=== PATIENT | male | born 1965 | race Caucasian/White ===

== ENCOUNTER 2017-06-07 08:37 | Inpatient (IN) | payer OTHER, BC ==
[~2017-06-07] VITALS: Ht 172.7 cm; Wt 85.4 kg
[~2017-06-07 08:37] MED LIST: BLOOD PRESSURE; CHOLESTEROL; UNABLE
[2017-06-07 09:30] LABS: BASO % 0.2 %; BASO ABS # 0.02 K/uL (0-0.2); COMPLETE YES; EOS % 1.5 %; HEMATOCRIT 42.6 % (42-52); IG% 0.3 %; LYMPH % 24.4 %; LYMPH ABS # 2.31 K/uL (1.2-3.4); MEAN CELL VOLUME 89.1 fL (80-100); MEAN CORPUSCULAR HEMOGLOBIN 30.5 pg (25-34); MEAN CORPUSCULAR HGB CONC 34.3 g/dl (32-36); MEAN PLATELET VOLUME 9.5 fL (7.4-10.4); MONO % 4.4 %; NEUT % 69.2 %; PLATELET COUNT 184 K/uL (130-400); RED BLOOD COUNT 4.78 M/uL (4.7-6.1); VEN BLD GAS O2 SATURATION 67.5 %; VEN BLOOD GAS BASE EXCESS -0.7 mEq/L; WHITE BLOOD COUNT 9.47 K/uL (4.8-10.8)
--- NOTE | 2017-06-07 09:34 | EMERGENCY ROOM VISIT NOTE ---
History First contact with patient: 09:11 Chief Complaint: SEIZURE Stated Complaint: SEIZURE Nursing Triage Summary: Patient arrived via ems from his work site. 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 EMS checked carbon monoxide level which resulted at 3%. Patient was found seizing by his coworkers, unsure how long he was seizing. Denies history of seziures. PT reports taking medication for BP and cholesterol. Patient post-ictal, lethargic, A&O to person and place only. Speech is clear. PT bit his tongue and incontinent of urine. History of Present Illness The patient is a 52 year old male who presents to the Emergency Room with complaints of seizure, unwitnessed, while at work. 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 He does not know why he is here in hospital, just that he "must've passed out or something." He is oriented to person and place but disoriented to time. He recalls going to work and getting into truck at work, but does not remember being in the mine. He remembers the time being 0730. Does not recall any dizziness or lightheadedness. He reports his tongue hurts and his right calf hurts but otherwise no complaints. No personal or family history of seizures or chronic medical conditions. He denies recent illness, denies changes in vision. He takes medications for hypertension and cholesterol and reports he did take them this morning. Review of Systems see below Constitutional: No fever, No chills, No sweats, No weight loss, No weakness , No fatigue, No problem reported Eyes: No worsening of vision, No eye pain, No redness, No discharge, No diplopia, No problem reported ENT: + problem reported (tongue hurts), No hearing loss, No unusual epistaxis, No nasal symptoms, No sore throat, No tinnitus, No dental problems, No trouble swallowing Respiratory: No cough, No sputum, No wheezing, No shortness of breath, No dyspnea on exertion, No dyspnea at rest, No hemoptysis, No problem reported Cardiovascular: No chest pain, No orthopnea, No PND, No edema, No claudication, No palpitations, No problem reported Abdomen: No pain, No nausea, No vomiting, No diarrhea, No constipation, No GI bleeding, No problem reported Musculoskeletal: + muscle pain (right calf ) Genitourinary - Male: + urinary incontinence Neurologic: + memory loss Past Medical/Surgical History Medical Problems: (1) Hyperlipidemia (2) Hypertension Social History Smoking Status: Never Smoker Smokeless Tobacco Use: Yes (previously used chewing tobacco 25 years ago) Drug Use: none Marital Status: Housing Status: lives with significant other Occupation Status: employed Current/Historical Medications Scheduled Lisinopril (Zestril), 20 MG PO DAILY Simvastatin (Zocor), 20 MG PO QAM Scheduled PRN [place]-3 Fatty Acids (Fish Oil), 1 CAP PO DAILY PRN for PRN Resident Involvement: Resident Care Provided Care Provided: Adult ED Physical Exam Vital Signs Date Time Temp Pulse Resp B/P (MAP) Pulse Ox O2 Delivery O2 Flow Rate FiO2 06/07/17 12:30 116 20 121/81 93 Nasal Cannula 4.0 06/07/17 12:19 114 06/07/17 12:10 117 22 115/68 93 Nasal Cannula 4.0 06/07/17 12:00 120 22 136/83 93 Nasal Cannula 4.0 06/07/17 11:57 117 20 142/85 94 Nasal Cannula 2.0 06/07/17 11:00 85 20 170/95 95 06/07/17 09:06 85 18 149/103 92 Room Air 06/07/17 08:52 97 06/07/17 08:48 94 Room Air 06/07/17 08:48 36.6 89 22 166/97 94 Room Air Physical Exam See below General Appearance: WD/WN, no apparent distress Head: normocephalic, atraumatic Eyes: normal inspection, PERRL, EOMI ENT: hearing grossly normal, + pertinent finding (bleeding from right side of tongue; scraped lesion on right lateral tongue) Neck: supple, no adenopathy Respiratory/Chest: chest non-tender, lungs clear, normal breath sounds, no respiratory distress, no accessory muscle use Cardiovascular: regular rate, rhythm, no edema, no JVD, no murmur Medical Decision & Procedures Laboratory Results 06/07/17 09:17 Red Blood Count 4.78, Mean Corpuscular Volume 89.1, Mean Corpuscular Hemoglobin 30.5, Mean Corpuscular Hemoglobin Concent 34.3, Mean Platelet Volume 9.5, Neutrophils (%) (Auto) 69.2, Lymphocytes (%) (Auto) 24.4, Monocytes (%) (Auto) 4.4, Eosinophils (%) (Auto) 1.5, Basophils (%) (Auto) 0.2, Neutrophils # (Auto) 6.55, Lymphocytes # (Auto) 2.31, Monocytes # (Auto) 0.42, Eosinophils # (Auto) 0.14, Basophils # (Auto) 0.02 06/07/17 09:17 Test 06/07/17 09:17 06/07/17 12:01 White Blood Count 9.47 K/uL (4.8-10.8) Red Blood Count 4.78 M/uL (4.7-6.1) Hemoglobin 14.6 g/dL (14.0-18.0) Hematocrit 42.6 % (42-52) Mean Corpuscular Volume 89.1 fL (80-100) Mean Corpuscular Hemoglobin 30.5 pg (25-34) Mean Corpuscular Hemoglobin Concent 34.3 g/dl (32-36) Platelet Count 184 K/uL (130-400) Mean Platelet Volume 9.5 fL (7.4-10.4) Neutrophils (%) (Auto) 69.2 % Lymphocytes (%) (Auto) 24.4 % Monocytes (%) (Auto) 4.4 % Eosinophils (%) (Auto) 1.5 % Basophils (%) (Auto) 0.2 % Neutrophils # (Auto) 6.55 K/uL (1.4-6.5) Lymphocytes # (Auto) 2.31 K/uL (1.2-3.4) Monocytes # (Auto) 0.42 K/uL (0.11-0.59) Eosinophils # (Auto) 0.14 K/uL (0-0.5) Basophils # (Auto) 0.02 K/uL (0-0.2) RDW Standard Deviation 45.0 fL (36.4-46.3) RDW Coefficient of Variation 13.7 % (11.5-14.5) Immature Granulocyte % (Auto) 0.3 % Immature Granulocyte # (Auto) 0.03 K/uL (0.00-0.02) D-Dimer 490 ug/L FEU (0-500) Venous Blood pH 7.38 (7.36-7.41) Venous Blood Partial Pressure CO2 42 mmHg (38.0-50.0) Venous Blood Partial Pressure O2 37 mmHg Venous Blood HCO3 25 mmol/L Venous Blood Oxygen Saturation 67.5 % Venous Blood Base Excess -0.7 mEq/L Carboxyhemoglobin 0.0 % THgb Anion Gap 12.0 mmol/L (3-11) Est Creatinine Clear Calc Drug Dose 81.4 ml/min Estimated GFR () 83.2 Estimated GFR (Non- 71.8 BUN/Creatinine Ratio 17.7 (10-20) Calcium Level 9.2 mg/dl (8.5-10.1) Total Bilirubin 0.4 mg/dl (0.2-1) Aspartate Amino Transf (AST/SGOT) 21 U/L (15-37) Alanine Aminotransferase (ALT/SGPT) 39 U/L (12-78) Alkaline Phosphatase 71 U/L (45-117) Troponin I < 0.015 ng/ml (0-0.045) Total Protein 7.4 gm/dl (6.4-8.2) Albumin 4.0 gm/dl (3.4-5.0) Globulin 3.4 gm/dl (2.5-4.0) Albumin/Globulin Ratio 1.2 (0.9-2) Medications Administered Medications (Trade) Dose Ordered Sig/Bryce Route Start Time Stop Time Status Last Admin Dose Admin Sodium Chloride 1,000 ml @ 999 mls/hr Q1H1M ONCE IV 06/07/17 09:45 06/07/17 10:45 DC 06/07/17 10:09 999 MLS/HR Lorazepam (Ativan Inj) 2 mg STK-MED ONCE .ROUTE 06/07/17 11:45 06/07/17 11:46 DC 06/07/17 11:45 2 MG Levetiracetam 1000 mg/Dextrose 110 ml @ 440 mls/hr ONE ONCE IV 06/07/17 12:00 06/07/17 12:14 DC 06/07/17 12:09 440 MLS/HR ECG Indication: altered mental status Rate (beats per minute): 88 Rhythm: normal sinus Findings: no acute ischemic change Comparison ECG Date: no prior available ED Course 0915: full h&p obtained from patient. 1000: patient sent for Head CT and CXR 1100: patient updated on results from scans; awaiting to hear from mine coworkers 1115: discussed case with poison control, they did not believe it would be related to [place] mine and recommended medical workup. 1200: patient to be evaluated by hospitalists for admission Medical Decision Prior records/ancillary studies reviewed. Patient placed in seizure precautions immediately upon arrival. Nursing notes reviewed. Additional history obtained from his The patient's history was concerning for a possible seizure. Differential diagnosis: Etiologies such as infection, hypoglycemia, electrolyte abnormalities, cardiac sources, intracerebral event, trauma, toxicologic, neurologic, as well as others were entertained. Physical examination: As above. No signs of trauma. Diagnostics interpretation by me: ECG: NSR, Regular rate, normal EKG The labs revealed nothing abnormal: anion gap of 12, negative carboxylase, normal VBG, negative troponin Imaging studies: CHEST ONE VIEW PORTABLE CLINICAL HISTORY: Shortness of breath. Seizure. COMPARISON STUDY: No previous studies for comparison. FINDINGS: Lung volumes are mildly diminished. Lungs are clear. Pulmonary vascularity is normal. Cardiomediastinal silhouette is normal. There is no pneumothorax or pleural effusion. IMPRESSION: No acute cardiopulmonary findings. CT SCAN OF THE BRAIN WITHOUT IV CONTRAST CLINICAL HISTORY: Seizure. COMPARISON STUDY: CT of the brain dated 05/26/2011. TECHNIQUE: Unenhanced axial CT scan of the brain is performed from the vertex to the skull base. A dose lowering technique was utilized adhering to the principles of ALARA. FINDINGS: Brain parenchyma: Left frontal encephalomalacia is unchanged from 05/26/2011 and consistent with a remote insult. There is minimal periventricular microangiopathic disease. There is no hemorrhage, mass effect, or evidence of acute territorial ischemia by CT criteria. Harp-white matter is preserved. No extra-axial fluid collection is seen. Ventricles, sulci, cisterns: Normal in configuration. Intracranial vasculature: There is atherosclerotic calcification of the cavernous carotid arteries. Calvarium: There is no depressed calvarial fracture. Sinuses and mastoids: Trace mucosal thickening is seen in the left frontal, the ethmoid, the sphenoid, and the left maxillary sinuses. The mastoid air cells are well pneumatized. Orbits: The bony orbits are grossly intact. IMPRESSION: 1. There is no hemorrhage, mass effect, or evidence of acute territorial ischemia by CT criteria. 2. Left frontal encephalomalacia is unchanged from 2010 and consistent with a remote insult. Consultation: Case discussed with latex foam worker who will evaluate for admission. The patient was counseled not to drive until cleared in follow-up and seizure precautions given. I gave my usual and customary discussion regarding these issues. The patient was informed about the findings as listed above. All questions were answered and he was pleased with the treatment. Blood Pressure Screening Patient's blood pressure: Elevated blood pressure Blood pressure disposition: Elevated BP felt to be situational Impression Primary Impression: Seizure Departure Information Dispostion Admitted as an inpatient Condition GOOD Referrals No Doctor, Assigned (PCP) Patient Instructions [facility]
[2017-06-07] MEDS ORDERED: SODIUM CHLORIDE 0.9% 1000ML 1,000 ML IV ONE (09:45)
[2017-06-07 09:52] LABS: BUN/CREATININE RATIO 17.7 (10-20); CALCIUM 9.2 mg/dl (8.5-10.1); CREATININE 1.17 mg/dl (0.60-1.40); POTASSIUM 3.7 mmol/L (3.5-5.1)
[2017-06-07 09:56] LABS: ALB/GLOB RATIO 1.2 (0.9-2)
--- NOTE | 2017-06-07 10:19 | DIAGNOSTIC IMAGING REPORT ---
CHEST ONE VIEW PORTABLE CLINICAL HISTORY: Shortness of breath. Seizure. COMPARISON STUDY: No previous studies for comparison. FINDINGS: Lung volumes are mildly diminished. Lungs are clear. Pulmonary vascularity is normal. Cardiomediastinal silhouette is normal. There is no pneumothorax or pleural effusion. IMPRESSION: No acute cardiopulmonary findings. Electronically signed by: Benji Ken M.D. 06/07/2017 10:18 AM Dictated Date/Time: 06/07/2017 10:17 AM
[2017-06-07] MEDS ORDERED: SIMV20TA2 PO (10:23)
[2017-06-07] MEDS ORDERED: LISI-725 PO (10:23)
[2017-06-07] MEDS ORDERED: OMEGCAP2 PO (10:23)
--- NOTE | 2017-06-07 10:45 | DIAGNOSTIC IMAGING REPORT ---
CT SCAN OF THE BRAIN WITHOUT IV CONTRAST CLINICAL HISTORY: Seizure. COMPARISON STUDY: CT of the brain dated 05/26/2011. TECHNIQUE: Unenhanced axial CT scan of the brain is performed from the vertex to the skull base. A dose lowering technique was utilized adhering to the principles of ALARA. CT DOSE: 690.05 mGycm FINDINGS: Brain parenchyma: Left frontal encephalomalacia is unchanged from 05/26/2011 and consistent with a remote insult. There is minimal periventricular microangiopathic disease. There is no hemorrhage, mass effect, or evidence of acute territorial ischemia by CT criteria. Harp-white matter is preserved. No extra-axial fluid collection is seen. Ventricles, sulci, cisterns: Normal in configuration. Intracranial vasculature: There is atherosclerotic calcification of the cavernous carotid arteries. Calvarium: There is no depressed calvarial fracture. Sinuses and mastoids: Trace mucosal thickening is seen in the left frontal, the ethmoid, the sphenoid, and the left maxillary sinuses. The mastoid air cells are well pneumatized. Orbits: The bony orbits are grossly intact. IMPRESSION: 1. There is no hemorrhage, mass effect, or evidence of acute territorial ischemia by CT criteria. 2. Left frontal encephalomalacia is unchanged from 2010 and consistent with a remote insult. Electronically signed by: Zaheer Joyce M.D. 06/07/2017 10:44 AM Dictated Date/Time: 06/07/2017 10:41 AM
[2017-06-07] MEDS ORDERED: LORAZEPAM 2 MG/ML 1 ML VIAL ONE (11:45)
[2017-06-07] MEDS ORDERED: LEVETIRACETAM IV 1,000 MG in DEXTROSE 5% 100ML 100 ML IV ONE (12:00)
[2017-06-07] MEDS ORDERED: ACETAMINOPHEN 325 MG TAB PO PRN (13:15)
[2017-06-07] MEDS ORDERED: LORAZEPAM 0.5 MG TAB PO PRN (13:15)
[2017-06-07] MEDS ORDERED: LORAZEPAM 2 MG/ML 1 ML VIAL IV PRN ×2 (13:15)
[2017-06-07] MEDS ORDERED: HydrALAZINE HCL 20 MG/ML VIAL IV PRN (13:15)
[2017-06-07] MEDS ORDERED: ONDANSETRON INJ 2 MG/ML 2 ML VIAL IV PRN (13:15)
[2017-06-07] MEDS ORDERED: ALUMINUM/MAGNESIUM/SIMETH (MAALOX MAX) 30 ML UDC PO PRN (13:15)
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
[2017-06-07 14:09] LABS: INR 1.1 (0.9-1.1); PROTHROMBIN TIME (PATIENT) 11.4 SECONDS (9.0-12.0)
[2017-06-07 14:20] LABS: BENZODIAZEPINE, URINE NEG (NEG); COCAINE,URINE NEG (NEG); PHENCYCLIDINE, URINE NEG (NEG)
--- NOTE | 2017-06-07 14:52 | EMERGENCY ROOM VISIT NOTE ---
History Report prepared by Magnus: Amie Bowling Under the Supervision of: Dr. Apollo Del Cid D.O. First contact with patient: 09:10 Chief Complaint: SEIZURE Stated Complaint: SEIZURE Nursing Triage Summary: Patient arrived via ems from his work site. 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 EMS checked carbon monoxide level which resulted at 3%. Patient was found seizing by his coworkers, unsure how long he was seizing. Denies history of seziures. PT reports taking medication for BP and cholesterol. Patient post-ictal, lethargic, A&O to person and place only. Speech is clear. PT bit his tongue and incontinent of urine. History of Present Illness The patient is a 52 year old male who presents to the Emergency Room with complaints of a sudden seizure that occurred just prior to arrival. He currently rates his discomfort as a 3/10 in severity. 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 He states that today he remembers going into the mine initially and states that he then came back out after a call outside. The patient states that he then remembers going back into the mine but does not remember anything after that. Per EMS the patient was found having a seizure by a coworker. EMS reports that the patient was incontinent of urine and had bit his tongue. The patient denies any personal or family history of seizures. He states that the first thing after the incident he remembers is being in the ambulance. The patient states that he is feeling fidgety today. He reports right calf pain. The patient reports a history of hypertension and hyperlipidemia. Patient denies swelling of calves, recent trips, history of immobilization or recent surgery, prior history of DVT, hemoptysis, history of malignancy, history of smoking, or control/estrogen use. Patient denies diabetes, CAD, history of sudden at a young age, and smoking. The patient denies headache, change in vision, fevers, chest pain, shortness of breath, nausea, vomiting, diarrhea, pain with urination, and melena. Source of History: patient Onset: prior to arrival Position: other (global) Symptom Intensity: 3/10 Quality: other (seizure) Timing: other (sudden) Note: Associated Symptoms: tongue bite, incontinent of urine, right calf pain, feeling fidgety Review of Systems See HPI for pertinent positives & negatives. A total of 10 systems reviewed and were otherwise negative. Past Medical & Surgical Medical Problems: (1) Hyperlipidemia (2) Hypertension (3) Seizure Family History No pertinent family history stated Social History Smoking Status: Never Smoker Alcohol Use: heavy Marital Status: Housing Status: lives with significant other Occupation Status: employed Current/Historical Medications Scheduled Lisinopril (Zestril), 20 MG PO DAILY Simvastatin (Zocor), 20 MG PO QAM Scheduled PRN Spurger-3 Fatty Acids (Fish Oil), 1 CAP PO DAILY PRN for PRN Allergies Coded Allergies: BEE STING (Verified Allergy, Unknown, ., 06/07/17) Physical Exam Vital Signs Date Time Temp Pulse Resp B/P (MAP) Pulse Ox O2 Delivery O2 Flow Rate FiO2 06/07/17 14:25 86 20 130/77 97 06/07/17 13:30 93 20 135/82 95 Room Air 06/07/17 13:10 97 20 153/99 93 Nasal Cannula 06/07/17 12:30 116 20 121/81 93 Nasal Cannula 4.0 06/07/17 12:19 114 06/07/17 12:10 117 22 115/68 93 Nasal Cannula 4.0 06/07/17 12:00 120 22 136/83 93 Nasal Cannula 4.0 06/07/17 11:57 117 20 142/85 94 Nasal Cannula 2.0 06/07/17 11:00 85 20 170/95 95 06/07/17 09:06 85 18 149/103 92 Room Air 06/07/17 08:52 97 06/07/17 08:48 94 Room Air 06/07/17 08:48 36.6 89 22 166/97 94 Room Air Physical Exam GENERAL: Sitting up in bed, alert, well appearing, well nourished, no distress, non-toxic HEAD: Normocephalic, atraumatic EYE EXAM: normal conjunctiva. PERRL and EOM's intact. OROPHARYNX: no exudate, no erythema, lips, buccal mucosa, and tongue normal and mucous membranes are moist NECK: supple, no nuchal rigidity, no adenopathy, non-tender LUNGS: Clear to auscultation. Normal chest wall mechanics HEART: no murmurs, S1 normal and S2 normal ABDOMEN: abdomen soft, non-tender, normo-active bowel sounds, no masses, no rebound or guarding. BACK: Back is symmetrical on inspection and there is no deformity, no midline tenderness, no CVA tenderness. SKIN: no rashes and no bruising UPPER EXTREMITIES: upper extremities are grossly normal. LOWER EXTREMITIES: No pitting edema. NEURO EXAM: Normal sensorium, cranial nerves II-XII intact, normal speech, no weakness of arms, no weakness of legs. No drift. Finger to nose intact. Gross sensation intact. Medical Decision & Procedures ER Provider Diagnostic Interpretation: Radiology results as stated below per my review and the radiologist's interpretation: CHEST ONE VIEW PORTABLE CLINICAL HISTORY: Shortness of breath. Seizure. COMPARISON STUDY: No previous studies for comparison. FINDINGS: Lung volumes are mildly diminished. Lungs are clear. Pulmonary vascularity is normal. Cardiomediastinal silhouette is normal. There is no pneumothorax or pleural effusion. IMPRESSION: No acute cardiopulmonary findings. Electronically signed by: Benji Ken M.D. 06/07/2017 10:18 AM Dictated Date/Time: 06/07/2017 10:[address] SCAN OF THE BRAIN WITHOUT IV CONTRAST CLINICAL HISTORY: Seizure. COMPARISON STUDY: CT of the brain dated 05/26/2011. TECHNIQUE: Unenhanced axial CT scan of the brain is performed from the vertex to the skull base. A dose lowering technique was utilized adhering to the principles of ALARA. CT DOSE: 690.05 mGycm FINDINGS: Brain parenchyma: Left frontal encephalomalacia is unchanged from 05/26/2011 and consistent with a remote insult. There is minimal periventricular microangiopathic disease. There is no hemorrhage, mass effect, or evidence of acute territorial ischemia by CT criteria. Harp-white matter is preserved. No extra-axial fluid collection is seen. Ventricles, sulci, cisterns: Normal in configuration. Intracranial vasculature: There is atherosclerotic calcification of the cavernous carotid arteries. Calvarium: There is no depressed calvarial fracture. Sinuses and mastoids: Trace mucosal thickening is seen in the left frontal, the ethmoid, the sphenoid, and the left maxillary sinuses. The mastoid air cells are well pneumatized. Orbits: The bony orbits are grossly intact. IMPRESSION: 1. There is no hemorrhage, mass effect, or evidence of acute territorial ischemia by CT criteria. 2. Left frontal encephalomalacia is unchanged from 2010 and consistent with a remote insult. Electronically signed by: Zaheer Joyce M.D. 06/07/2017 10:44 AM Dictated Date/Time: 06/07/2017 10:41 AM Laboratory Results 06/07/17 09:17 Red Blood Count 4.78, Mean Corpuscular Volume 89.1, Mean Corpuscular Hemoglobin 30.5, Mean Corpuscular Hemoglobin Concent 34.3, Mean Platelet Volume 9.5, Neutrophils (%) (Auto) 69.2, Lymphocytes (%) (Auto) 24.4, Monocytes (%) (Auto) 4.4, Eosinophils (%) (Auto) 1.5, Basophils (%) (Auto) 0.2, Neutrophils # (Auto) 6.55, Lymphocytes # (Auto) 2.31, Monocytes # (Auto) 0.42, Eosinophils # (Auto) 0.14, Basophils # (Auto) 0.02 06/07/17 09:17 Test 06/07/17 09:17 06/07/17 09:50 06/07/17 12:01 White Blood Count 9.47 K/uL (4.8-10.8) Red Blood Count 4.78 M/uL (4.7-6.1) Hemoglobin 14.6 g/dL (14.0-18.0) Hematocrit 42.6 % (42-52) Mean Corpuscular Volume 89.1 fL (80-100) Mean Corpuscular Hemoglobin 30.5 pg (25-34) Mean Corpuscular Hemoglobin Concent 34.3 g/dl (32-36) Platelet Count 184 K/uL (130-400) Mean Platelet Volume 9.5 fL (7.4-10.4) Neutrophils (%) (Auto) 69.2 % Lymphocytes (%) (Auto) 24.4 % Monocytes (%) (Auto) 4.4 % Eosinophils (%) (Auto) 1.5 % Basophils (%) (Auto) 0.2 % Neutrophils # (Auto) 6.55 K/uL (1.4-6.5) Lymphocytes # (Auto) 2.31 K/uL (1.2-3.4) Monocytes # (Auto) 0.42 K/uL (0.11-0.59) Eosinophils # (Auto) 0.14 K/uL (0-0.5) Basophils # (Auto) 0.02 K/uL (0-0.2) RDW Standard Deviation 45.0 fL (36.4-46.3) RDW Coefficient of Variation 13.7 % (11.5-14.5) Immature Granulocyte % (Auto) 0.3 % Immature Granulocyte # (Auto) 0.03 K/uL (0.00-0.02) D-Dimer 490 ug/L FEU (0-500) Venous Blood pH 7.38 (7.36-7.41) Venous Blood Partial Pressure CO2 42 mmHg (38.0-50.0) Venous Blood Partial Pressure O2 37 mmHg Venous Blood HCO3 25 mmol/L Venous Blood Oxygen Saturation 67.5 % Venous Blood Base Excess -0.7 mEq/L Carboxyhemoglobin 0.0 % THgb Anion Gap 12.0 mmol/L (3-11) Est Creatinine Clear Calc Drug Dose 81.4 ml/min Estimated GFR () 83.2 Estimated GFR (Non- 71.8 BUN/Creatinine Ratio 17.7 (10-20) Calcium Level 9.2 mg/dl (8.5-10.1) Total Bilirubin 0.4 mg/dl (0.2-1) Aspartate Amino Transf (AST/SGOT) 21 U/L (15-37) Alanine Aminotransferase (ALT/SGPT) 39 U/L (12-78) Alkaline Phosphatase 71 U/L (45-117) Troponin I < 0.015 ng/ml (0-0.045) Total Protein 7.4 gm/dl (6.4-8.2) Albumin 4.0 gm/dl (3.4-5.0) Globulin 3.4 gm/dl (2.5-4.0) Albumin/Globulin Ratio 1.2 (0.9-2) Prothrombin Time 11.4 SECONDS (9.0-12.0) Prothromb Time International Ratio 1.1 (0.9-1.1) Urine Opiates Screen NEG (NEG) Urine Methadone, Qualitative NEG (NEG) Urine Barbiturates NEG (NEG) Urine Phencyclidine (PCP) Level NEG (NEG) Ur Amphetamine/Methamphetamine NEG (NEG) MDMA (Ecstasy) Screen NEG (NEG) Urine Benzodiazepines Screen NEG (NEG) Urine Cocaine Metabolite NEG (NEG) Urine Marijuana (THC) NEG (NEG) Ethyl Alcohol mg/dL < 3.0 mg/dl (0-3) Laboratory results per my review. Medications Administered Medications (Trade) Dose Ordered Sig/Bryce Route Start Time Stop Time Status Last Admin Dose Admin Sodium Chloride 1,000 ml @ 999 mls/hr Q1H1M ONCE IV 06/07/17 09:45 06/07/17 10:45 DC 06/07/17 10:09 999 MLS/HR Lorazepam (Ativan Inj) 2 mg STK-MED ONCE .ROUTE 06/07/17 11:45 06/07/17 11:46 DC 06/07/17 11:45 2 MG Levetiracetam 1000 mg/Dextrose 110 ml @ 440 mls/hr ONE ONCE IV 06/07/17 12:00 06/07/17 12:14 DC 06/07/17 12:09 440 MLS/HR ECG Indication: other (seizure) Rate (beats per minute): 88 Rhythm: sinus rhythm Findings: no ectopy, other (normal axis) ED Course ED COURSE: Vital signs were reviewed and showed hypertensive The patients medical record was reviewed The above diagnostic studies were performed and reviewed. ED treatments and interventions as stated above. 0915: The patient was evaluated in room A2 by Dr. Hou, Maternal Child Nurse. A complete history and physical examination was performed. 0943: The patient was evaluated in room A2. A complete history and physical examination was performed. 0945: Ordered Sodium Chloride 1000 ml @ 999 mls/hr IV. 1141: Per nursing staff, the patient began seizing again. 1144: I spoke to the patients at this time, the patient was going underground when the seizure began. She additionally reports that the patient is an alcoholic and drinks daily. She notes that the patient last drank yesterday at 1100. 1145: Ordered Ativan Inj 2 mg .route. 1200: Ordered Levetiracetam 1000 mg/Dextrose 110 ml @ 440 mls/hr IV. 1201: I discussed the patients case with Dr. Rutherford [facility] [place]. He is going to evaluate the patient for further treatment. 1204: Upon reevaluation, the patient is resting.I discussed my findings with the patient's and she understands and agrees with the treatment plan. Based on the patients age, coexisting illnesses, exam and lab findings the decision to treat as an inpatient was made. The patient remained stable while under my care. The patient will be evaluated for further management. Medical Decision Differential diagnosis includes etiologies such as infection, hypoglycemia, electrolyte abnormalities, cardiac sources, intracerebral event, trauma, toxicologic, neurologic, as well as others were entertained. 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 Upon presentation he has no other complaints. No headache or change in vision. Completely neurologically intact. CT head was negative. No trauma. CBC all BMP, LFTs and troponin was negative. ABG was unremarkable. Carboxyhemoglobin was negative. Alcohol was negative. D-dimer was negative. EKG nondiagnostic. Upon further discussion with she notes that he is an alcoholic. He does drink every day. He has not drank since yesterday at 11 AM. This conversation occurred shortly after the patient had a second witnessed seizure in the ER. He was given 2 of Ativan. He was given a bolus of Keppra. I discussed with internal medicine and was admitted for status epilepticus. He did return back to baseline following his second seizure. Medication Reconcilliation Current Medication List: was personally reviewed by me Blood Pressure Screening Patient's blood pressure: Elevated blood pressure Blood pressure disposition: Elevated BP felt to be situational, Did not require urgent referral Consults Time Called: 1154 Consulting Physician: ANNE Ramirez Returned Call: 1201 I discussed the patients case with ANNE Ramirez. He is going to evaluate the patient for further treatment. Impression Primary Impression: Status epilepticus Critical Care I have personally spent 35 minutes of critical care time in the direct management of this patient. This includes bedside care, interpretation of diagnostic studies, and testing, discussion with consultants, patient, and family members, and other required patient management activities. This 35 minutes is in excess of all separately billable procedures. Scribe Attestation The scribe's documentation has been prepared under my direction and personally reviewed by me in its entirety. I confirm that the note above accurately reflects all work, treatment, procedures, and medical decision making performed by me. Departure Information Dispostion Being Evaluated By Hospitalist Referrals No Doctor, Assigned (PCP)
[2017-06-07 15:15] VITALS: BP 152/92; PULSE 95; TEMP 36.9; O2SAT 98; Ht 172.7 cm; Wt 85.4 kg
[2017-06-07] MEDS: LEVETIRACETAM 500 MG TAB PO ONE ×2 (16:00→17:00)
--- NOTE | 2017-06-07 18:05 | DIAGNOSTIC IMAGING REPORT ---
MRI OF THE BRAIN WITHOUT CONTRAST CLINICAL HISTORY: seizure COMPARISON STUDY: Noncontrast head CT dated 06/07/2017 FINDINGS: Sagittal T1, axial diffusion, proton density and T2 weighted axial, coronal FLAIR, and axial T1-weighted images were acquired. No intra or extra-axial mass lesions are visualized Axial diffusion-weighted images reveal no evidence of acute or subacute infarction. There is no evidence of hydrocephalus. There is mild dilatation of the left lateral ventricle secondary to left frontal lobe encephalomalacia. Proton density T2-weighted and FLAIR images reveal scattered foci of increased T2 signal within the white matter, likely on a small vessel basis. There is white matter edema surrounding the left frontal lobe encephalomalacia. There is left frontal lobe encephalomalacia, similar to prior studies dating back to 2010. This suggests an old infarct or posttraumatic injury. There is very subtle hippocampal asymmetry with equivocal subtle right hippocampal atrophy as compared to the left There are no abnormal flow voids. IMPRESSION: 1. No acute intracranial findings 2. No evidence of acute or subacute infarction 3. Old left frontal lobe encephalomalacia 4. Very subtle hippocampal asymmetry with equivocal subtle right hippocampal atrophy is compared to the left. Electronically signed by: Edin Barrios M.D. 06/07/2017 6:03 PM Dictated Date/Time: 06/07/2017 5:58 PM
[2017-06-07] MEDS: LEVETIRACETAM 500 MG TAB PO SCH (19:46)
[2017-06-07 20:09] VITALS: BP 159/93; PULSE 93; TEMP 36.8; O2SAT 95
[2017-06-07] MEDS ORDERED: ENOXAPARIN 40 MG/0.4 ML SYR SC SCH (21:00)
[2017-06-07 23:45] VITALS: BP 151/87; PULSE 79; TEMP 36.9; O2SAT 96
[2017-06-08] MEDS ORDERED: LEVETIRACETAM 500 MG TAB PO SCH
[2017-06-08 03:59] VITALS: BP 143/89; PULSE 72; TEMP 36.6; O2SAT 95
[2017-06-08 06:03] LABS: HEMATOCRIT 39.7 % (42-52); MEAN CELL VOLUME 89.4 fL (80-100); MEAN CORPUSCULAR HEMOGLOBIN 31.1 pg (25-34); MEAN CORPUSCULAR HGB CONC 34.8 g/dl (32-36); MEAN PLATELET VOLUME 9.8 fL (7.4-10.4); PLATELET COUNT 181 K/uL (130-400); RED BLOOD COUNT 4.44 M/uL (4.7-6.1); WHITE BLOOD COUNT 7.53 K/uL (4.8-10.8)
[2017-06-08 06:38] LABS: BUN/CREATININE RATIO 12.3 (10-20); CALCIUM 8.3 mg/dl (8.5-10.1); CREATININE 1.08 mg/dl (0.60-1.40); POTASSIUM 3.6 mmol/L (3.5-5.1)
[2017-06-08] MEDS: LEVETIRACETAM 500 MG TAB PO SCH (07:40)
[2017-06-08 08:00] VITALS: BP 137/84; PULSE 78; TEMP 36.9; O2SAT 95
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
[2017-06-08] MEDS ORDERED: LISINOPRIL 20 MG TAB PO SCH (09:00)
--- NOTE | 2017-06-08 10:44 | EEG Procedure Note ---
EEG Procedure Note Date of Service Jun 08, 2017. Start / End Times Start Time: 10:49 AM End Time: 10:[address] Rutherford History This is a 52-year-old male who presents with new onset seizure. EEG for further evaluation of possible seizure etiology. Home Medication List Scheduled Lisinopril (Zestril), 20 MG PO DAILY Simvastatin (Zocor), 20 MG PO QAM Scheduled PRN [place]-3 Fatty Acids (Fish Oil), 1 CAP PO DAILY PRN for PRN Inpatient Medication List Current Inpatient Medications Medications (Trade) Dose Ordered Sig/Bryce Route Start Time Stop Time Status Last Admin Dose Admin Enoxaparin Sodium (Lovenox Inj) 40 mg Q24H SC 06/07/17 21:00 07/07/17 13:14 06/07/17 19:47 40 MG Acetaminophen (Tylenol Tab) 650 mg Q4H PRN PO 06/07/17 13:15 07/07/17 13:14 Al Hydrox/Mg Hydrox/Simethicone (Maalox Max Susp) 15 ml Q4H PRN PO 06/07/17 13:15 07/07/17 13:14 Ondansetron HCl (Zofran Inj) 4 mg Q6H PRN IV 06/07/17 13:15 07/07/17 13:14 Levetiracetam (Keppra Tab) 500 mg BID PO 06/07/17 21:00 07/07/17 20:59 06/08/17 07:40 500 MG Lorazepam (Ativan Tab) 1 mg Q6 PRN PO 06/07/17 13:15 07/07/17 13:14 06/08/17 07:40 1 MG Lorazepam (Ativan Inj) 2 mg Q4H PRN IV 06/07/17 13:15 07/07/17 13:14 Lorazepam (Ativan Inj) 1 mg Q4H PRN IV 06/07/17 13:15 07/07/17 13:14 Hydralazine HCl (HydrALAZINE INJ) 10 mg Q4H PRN IV 06/07/17 13:15 07/07/17 13:14 Lisinopril (Zestril Tab) 20 mg DAILY PO 06/08/17 09:00 07/08/17 08:59 06/08/17 07:41 20 MG Simvastatin (Zocor Tab) 20 mg HS PO 06/08/17 21:00 07/08/17 20:59 Description This is a 21 electrode EEG with a single channel dedicated to limited EKG. The electrodes were placed in accordance with the International 10-20 system. EEG was recorded on [employer] equipment. At the start of this recording the patient was in an awake state. Background was well formed with a symmetric next of moderate amplitude alpha and beta frequencies. There was a symmetric well-formed posterior dominant rhythm of 8-9 Hz that was reactive to eye opening and closure. Photic stimulation at various frequencies did not produce any abnormalities. Hyperventilation was not done. There was no state changes or sleep transients. Interpretation This is a normal awake only routine EEG There was no epileptiform discharges or electrographic seizures. Clinical Correlation A normal EEG does not rule out epilepsy if there is a strong clinical concern.
[2017-06-08 11:55] VITALS: BP 132/63; PULSE 74; TEMP 36.8; O2SAT 99
[2017-06-08 12:00] VITALS: O2SAT 95
[2017-06-08] MEDS ORDERED: LEVE500T13 PO ×2 (13:36→16:10)
--- NOTE | 2017-06-08 16:09 | Discharge Instructions ---
Discharge Instructions Date of Service Jun 08, 2017. Admission Reason for Admission: Seizure Discharge Discharge Diagnosis / Problem: Seizure Discharge Goals Goal(s): Decrease discomfort, Improve function, Increase independence Activity Recommendations Activity Limitations: as noted below Lifting Limitations: none Exercise/Sports Limitations: none May Resume Sexual Activity: when tolerated Shower/Bathe: no limitations Driving or Machine Use: no driving or operating machines for 6 months . Instructions / Follow-Up Instructions / Follow-Up Seizures: - It appears that these seizures may be related to the head trauma you have had in the past - At this point it is best to use an anti-seizure medication to prevent these from happening - You will be prescribed Keppra 500 mg twice a day and will need to take this every day - You will need to follow up with the neurology clinic in one month to continue monitoring your medication and seizures - YOU CANNOT DRIVE OR OPERATE MACHINERY FOR 6 MONTHS - You will be provided a note to give to your employer that it is medically not allowed until you go this length of time without seizure activity - You can harm yourself or someone else unintentionally by not following these recommendations - You may continue your home medication as previously prescribed - Please avoid alcohol or any medications that can alter you especially while starting a new medication Current Hospital Diet Patient's current hospital diet: Regular Diet Discharge Diet Recommended Diet: Regular Diet Pending Studies Studies pending at discharge: no Medical Emergencies . Who to Call and When: Medical Emergencies: If at any time you feel your situation is an emergency, please call 911 immediately. . Non-Emergent Contact Non-Emergency issues call your: Primary Care Provider Call Non-Emergent contact if: you have a fever, your pain is concerning you, you have any medication questions . . "Provider Documentation" section prepared by Dacia Boo. . VTE Core Measure Inpt VTE Proph given/why not?: Enoxaparin (Lovenox)SQ
[2017-06-08] MEDS ORDERED: NON-FORMULARY MEDICATION SCH (16:15)
[2017-06-08 16:58] VITALS: BP 132/63; PULSE 74; TEMP 36.8; O2SAT 95
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
[2017-06-08] MEDS ORDERED: SIMVASTATIN 20 MG TAB PO SCH (21:00)
== END 2017-06-08 18:10 | disposition home or self-care (01) | DRG 101 ==
LOC: EDBD 08:37 → C.EDA 08:38 → C.2T 13:14 → ENRESERV 13:52
PROVIDERS: ADMIT Internal Medicine; ATTEND Internal Medicine
DX: R56.9 Unspecified convulsions (principal); Z72.89 Other problems related to lifestyle; G93.89 Other specified disorders of brain; I10 Essential (primary) hypertension; E78.5 Hyperlipidemia, unspecified; Z51.81 Encounter for therapeutic drug level monitoring; Z79.899 Other long term (current) drug therapy; Z87.820 Personal history of traumatic brain injury; Z87.891 Personal history of nicotine dependence

== ENCOUNTER → 2017-07-02 | Outpatient (CLI) | payer OTHER, BC ==
[~2017-07-02] MED LIST changes: -BLOOD PRESSURE; -CHOLESTEROL; +LEVE500T13 PO; +LISI-725 PO; +OMEGCAP2 PO; +SIMV20TA2 PO; -UNABLE
[2017-07-02 12:20] LABS: HEMATOCRIT 42.6 % (42-52); MEAN CELL VOLUME 88.8 fL (80-100); MEAN CORPUSCULAR HEMOGLOBIN 30.8 pg (25-34); MEAN CORPUSCULAR HGB CONC 34.7 g/dl (32-36); MEAN PLATELET VOLUME 10.6 fL (7.4-10.4); PLATELET COUNT 235 K/uL (130-400)
[2017-07-02 12:33] LABS: ALT/SGPT 39 U/L (12-78); AST/SGOT 17 U/L (15-37); BLOOD UREA NITROGEN 16 mg/dl (7-18); BUN/CREATININE RATIO 17.8 (10-20); CALCIUM 8.9 mg/dl (8.5-10.1); CARBON DIOXIDE 26 mmol/L (21-32); CHLORIDE 104 mmol/L (98-107); CREATININE 0.89 mg/dl (0.60-1.40); GLUCOSE 108 mg/dl (70-99); POTASSIUM 3.9 mmol/L (3.5-5.1); SODIUM 136 mmol/L (136-145)
[2017-07-02 12:59] LABS: ALB/GLOB RATIO 1.1 (0.9-2); ALKALINE PHOSPHATASE 71 U/L (45-117); CHOLESTEROL 221 mg/dl (0-200); CHOLESTEROL/HDL RATIO 5.3; HDL CHOLESTEROL 42 mg/dl; LDL CHOLESTEROL CALCULATED 155 mg/dl; TRIGLYCERIDES 122 mg/dl (0-150); VERY LOW DENSITY LIPOPROT CALC 24 mg/dl
== END | disposition home or self-care (01) ==
LOC: C.LABBFT 10:14
PROVIDERS: ATTEND Internal Medicine
DX: E78.5 Hyperlipidemia, unspecified (principal); I10 Essential (primary) hypertension

== ENCOUNTER 2019-09-04 20:53 | Inpatient (IN) ==
[2019-09-04] MEDS ORDERED: LORazepam 1 MG/2 ML VIAL IV STA (21:00)
--- NOTE | 2019-09-04 21:25 | Emergency Department Note ---
Entered by Pari Ram acting as a scribe for Freddy Ordonez M.D. History of Present Illness General Chief complaint: Seizure Stated complaint: SEIZURE Time Seen by Provider: 09/04/19 21:00 History of Present Illness Provider complaint: seizure Onset (ago): minute(s) 30 Severity: similar to prior episodes (seen here earlier today for seizure) Pain Consistency: + other (episode) Quality: + other (seizure) Associated symptoms: + other (lasted 1-2 minutes, sitting in car with seatbelt on when it occurred, nothing to eat or drink since discharge time, bit tongue) The patient is a 54 year old male who presents to the ED with complaints of an episode of a seizure that occurred 30 minutes ago. Per girlfriend, the patients seizure lasted approximately 1-2 minutes. Per girlfriend, the patient was sitting in the car with the seatbelt on when the seizure occurred. The patient's girlfriend states that he bit his tongue during this episode. Per girlfriend, the patient was seen here earlier today for a seizure that occurred at 1700. Per girlfriend, the patient did not have anything to eat or drink since he was discharged. Home Medications Home Medications Medication Instructions Recorded Confirmed Type lisinopril 20 mg tablet 20 mg PO DAILY #90 tab 03/31/19 09/04/19 Rx simvastatin 20 mg tablet 20 mg PO QAM #90 tab 04/04/19 09/04/19 Rx lamotrigine 25 mg PO DAILY 09/04/19 09/04/19 History mv,Ca,dpv-bjgg-FM-lycopene 1 tab PO DAILY 09/04/19 09/04/19 History [Centrum Men] Allergies Allergy/AdvReac Type Severity Reaction Status Date / Time bee venom protein (honey bee) Allergy Intermediate severe Verified 08/29/19 12:21 swelling Past Med/Surg History Social History Preferred Language: Jordanian Communication Ability: Effective 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 and A total of 10 systems reviewed and were otherwise negative Physical Exam Vital Signs Vital Signs - 24 hr 09/04/19 20:56 09/04/19 20:59 09/04/19 21:01 Temperature 37.0 C Temperature Source Oral Pulse Rate 120 H 122 H 122 H Pulse Rate from SpO2 Sensor 123 H 121 H Respiratory Rate 20 28 H 30 H Respiratory Effort / Characteristics Non-Labored Spontaneous Respiratory Depth Normal Blood Pressure 144/85 H 144/85 H 166/88 H Blood Pressure Mean 104 91 122 Pulse Oximetry 93 92 92 Oxygen Delivery Method Room Air Sepsis Recent Fever Within 48 Hours No Sepsis New/Unexplained Change in Mental Status No Sepsis Action Taken by Nursing No Action Required Oxygen Flow Rate - Titration Pulse Oximetry Post Tiitration 09/04/19 21:02 09/04/19 21:10 09/04/19 21:15 Temperature Temperature Source Pulse Rate 120 H 116 H 113 H Pulse Rate from SpO2 Sensor 119 H 117 H 112 H Respiratory Rate 34 H 30 H 28 H Respiratory Effort / Characteristics Respiratory Depth Blood Pressure 141/77 H Blood Pressure Mean 94 Pulse Oximetry 92 89 L 88 L Oxygen Delivery Method Sepsis Recent Fever Within 48 Hours Sepsis New/Unexplained Change in Mental Status Sepsis Action Taken by Nursing Oxygen Flow Rate - Titration Pulse Oximetry Post Tiitration 09/04/19 21:16 09/04/19 21:20 09/04/19 21:30 Temperature Temperature Source Pulse Rate 111 H 112 H Pulse Rate from SpO2 Sensor 111 H 113 H Respiratory Rate 22 23 Respiratory Effort / Characteristics Respiratory Depth Blood Pressure 154/84 H Blood Pressure Mean 104 Pulse Oximetry 88 L 90 94 Oxygen Delivery Method Room Air Sepsis Recent Fever Within 48 Hours Sepsis New/Unexplained Change in Mental Status Sepsis Action Taken by Nursing Oxygen Flow Rate - Titration 5 Pulse Oximetry Post Tiitration 92 09/04/19 21:40 09/04/19 21:45 09/04/19 21:50 Temperature Temperature Source Pulse Rate 110 H 108 H Pulse Rate from SpO2 Sensor 110 H 107 H 109 H Respiratory Rate 25 H 20 18 Respiratory Effort / Characteristics Respiratory Depth Blood Pressure 150/84 H Blood Pressure Mean 99 Pulse Oximetry 95 94 95 Oxygen Delivery Method Sepsis Recent Fever Within 48 Hours Sepsis New/Unexplained Change in Mental Status Sepsis Action Taken by Nursing Oxygen Flow Rate - Titration Pulse Oximetry Post Tiitration GENERAL: Awake, alert, fatigued-appearing laying on bed. HENT: Normocephalic, atraumatic. Bite post on right anterior tongue. EYES: Normal conjunctiva. Sclera non-icteric. NECK: Supple. No nuchal rigidity. RESPIRATORY: Clear to auscultation. No wheezes. Normal respiratory effort. CARDIAC: Tachycardic rate. Normal rhythm. Extremities warm and well perfused. GI: Soft, non-distended. No tenderness to palpation. MUSCULOSKELETAL: Atraumatic. Chest examination reveals no tenderness. NEURO: Fatigued. No gross sensory or motor deficits noted. No facial droop or slurred speech. SKIN: Midly pale and diaphoretic. No jaundice noted. Course Course 2056: Past medical records reviewed. The patient was evaluated in room B01. A complete history and physical exam was performed. 2099: Discussed case with Dr. Mery RODRÍGUEZ Neurology. Recs for Keppra and ativan along with admission. 2104: I discussed the patient's case with Dr. Marcial [facility], Hospitalist. He will evaluate the patient for further management. Consultations Consultation #1: I discussed the patient's case with Dr. Marcial [facility], Hospitalist. He will evaluate the patient for further management. Time: 21:05 Administered Medications Discontinued Medications Levetiracetam 1,000 mg/ (Dextrose) 110 mls @ 440 mls/hr IV NOW STA Stop: 09/04/19 21:14 Last Infusion: 09/04/19 21:27 Dose: 0 mls/hr Documented by: [id number] Admin: 09/04/19 21:12 Dose: 440 mls/hr Documented by: [id number] Lorazepam (Ativan) 1 mg in 2 mls @ 2 mls/min IV NOW STA Stop: 09/04/19 21:01 Last Admin: 09/04/19 21:12 Dose: 2 mls/min Documented by: [id number] Medical Decision Making Differential Diagnosis Differential diagnosis includes etiologies such as infection, hypoglycemia, el ectrolyte abnormalities, cardiac sources, intracerebral event, trauma, toxicologic, neurologic, as well as others were entertained. Medical Records Attestation: I reviewed the patient's medical records. Home Medications Current Medication List: was personally reviewed by me Laboratory Data Attestation: I reviewed the patient's lab results. Lab Results 09/04/19 09/04/19 Range/Units 18:30 21:16 POC Glucose 182 H (70-99) mg/dl Urine Opiates Screen Neg (Neg) Ur Methadone, Qual Neg (Neg) Urine Barbiturates Neg (Neg) Ur Phencyclidine (PCP) Neg (Neg) U Amphetamin/Meth Scrn Neg (Neg) MDMA (Ecstasy) Screen Neg (Neg) U Benzodiazepines Scrn Neg (Neg) Ur Cocaine Metabolite Neg (Neg) U Marijuana (THC) Screen Neg (Neg) Blood Pressure Blood Pressure Findings: Elevated blood pressure Blood Pressure Disposition: further management by hospitalist ADAM Narrative Patient is a 54-year-old gentleman I saw just a little bit ago after a breakthrough seizure today. On the way home had another 1 to 2-minute long seizure event in the car. No trauma otherwise reported. Seems postictal at this time. Did bite his tongue. Patient was given a small amount of Ativan and loaded with Keppra here in the emergency department. Blood glucose was checked. Again just had blood work done so did not repeat. Discussed with neurology. Patient with recurrent breakthrough seizures today requires admission for further evaluation and consultation with neurology in the morning. Impression & Plan Breakthrough seizure Discharge Plan Visit Data *Final* Discharge Date/Time: 09/04/19 22:25 Chief Complaint: Seizure Stated Complaint: SEIZURE ED Provider: Freddy Ordonez Discharge Problem: Breakthrough seizure Patient Disposition: Admitted As Inpatient Discharge Instructions Interventions: ED Discharge Assessment Last Done: 09/04/19 22:25 The justa's documentation has been prepared under my direction and personally reviewed by me in its entirety. I confirm that the note above accurately reflects all work, treatment, procedures, and medical decision making performed by me.
[2019-09-04] MEDS ORDERED: LORazepam 2 MG/4 ML VIAL IV PRN (21:52)
[2019-09-04 22:01] LABS: Amphetamines+Metham, Urine Neg (Neg); Barbiturates, Urine Neg (Neg); Benzodiazepine, Urine Neg (Neg); Cocaine, Urine Neg (Neg); MDMA (Ecstacy), Urine Neg (Neg); Methadone, Urine Neg (Neg); Opiate, Urine Neg (Neg); Phencyclidine, Urine Neg (Neg)
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
[2019-09-04] MEDS ORDERED: ACETAMINOPHEN 325 MG TAB PO PRN (22:44)
[2019-09-04] MEDS ORDERED: ONDANSETRON INJ 2 MG/ML 2 ML VIAL IV PRN (22:44)
--- NOTE | 2019-09-05 06:25 | Magnetic Resonance Report ---
MR brain wo con HISTORY: Mental status change seizure. 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 COMPARISON STUDY: 06/07/2017 FINDINGS: No significant change compared to the prior study. Diffusion images are negative for an acute ischemic event. Several malacia of the left frontal lobe is again noted. This is similar. Hippocampal atrophy/asymmet ry is unchanged. Findings of mild mucosal thickening of all major sinuses. Component of chronic small vessel change. No new or interval findings identified. IMPRESSION: 1. No acute intracranial abnormality. 2. 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 The above report was generated using voice recognition software. It may contain grammatical, syntax or spelling errors. Electronically signed by: Teo Vásquez M.D. 09/05/2019 6:24 AM
[2019-09-05 07:24] LABS: Basophils # (auto) 0.03 K/uL (0-0.2); Basophils % (auto) 0.3 %; Eosinophils # (auto) 0.06 K/uL (0-0.5); Eosinophils % (auto) 0.6 %; Hematocrit (blood only) 39.7 % (42-52); Hemoglobin 13.4 g/dL (14.0-18.0); Immature Granulocytes # (auto) 0.02 K/uL (0.00-0.02); Immature Granulocytes % (auto) 0.2 %; Lymphocytes % (auto) 24.8 %; Mean Corpuscular Hemoglobin 30.4 pg (25-34); Mean Corpuscular Hgb Conc 33.8 g/dL (32-36); Mean Platelet Volume 9.8 fL (7.4-10.4); Monocytes # (auto) 0.89 K/uL (0.11-0.59); Monocytes % (auto) 8.2 %; Neutrophils # (auto) 7.17 K/uL (1.4-6.5); Neutrophils % (auto) 65.9 %; Platelet Count 184 K/uL (130-400); RDW Coefficient of Variation 14.4 % (11.5-14.5); RDW Standard Deviation 47.1 fL (36.4-46.3); Red Blood Count 4.41 M/uL (4.7-6.1); White Blood Count 10.87 K/uL (4.8-10.8)
[2019-09-05 07:59] LABS: Albumin Level 3.5 gm/dl (3.4-5.0); BUN Creatinine Ratio 16.3 (10-20); Calcium 8.7 mg/dl (8.5-10.1); Creatinine Clr Calc Pharmacy 94.2 ml/min; Est GFR (African American) 104.2; Est GFR (Non-African American) 89.9; Potassium 3.5 mmol/L (3.5-5.1)
[2019-09-05 08:02] LABS: Bilirubin,Total 0.8 mg/dl (0.2-1); Globulin 3.4 gm/dl (2.5-4.0); Total Protein 6.9 gm/dl (6.4-8.2)
[2019-09-05] MEDS ORDERED: MAGNESIUM OXIDE 400 MG TAB PO SCH (09:00)
[2019-09-05] MEDS ORDERED: SIMVASTATIN 20 MG TAB PO SCH (09:00)
[2019-09-05] MEDS ORDERED: lisinopriL 20 MG TAB PO SCH (09:00)
[2019-09-05] MEDS ORDERED: CEROVITE ADV FORMULA TAB PO SCH (09:00)
[2019-09-05] MEDS ORDERED: lamoTRIgine 25 MG TAB PO SCH (09:00)
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
--- NOTE | 2019-09-05 17:50 | Neurology Consultation ---
Date of Consultation September 05, 2019 Assessment & Plan (1) Breakthrough seizure: Elan Barraza is a 54-year-old male with past medical history of hypertension, hyperlipidemia, prior TBI with residual left frontal encephalomalacia complicated by epilepsy who presents to [facility] after having 2 breakthrough seizures within 24 hours. #Breakthrough seizure: Occurred in the setting of AED wean. Given underlying encephalomalacia on MRI and the fact that he cannot tolerate wean despite being seizure-free for the last 2 years, he will likely need lifelong AED treatment. No other infectious or other cause for breakthrough seizure noted at this time. -Recommend increasing Lamictal to 50 mg daily with a Keppra 500 mg bid bridge for the next 1 week until levels start to become more therapeutic -He will need to follow-up with REGAN Duran within the next 1 to 2 weeks to have further up titration (likely will need to go back on Lamictal 100 mg daily) -General seizure precautions supply including no driving for the next 6 months (has already been reported to the DMV), safe swimming, no bathing alone recommend showering, use a back burner when cooking Thank you for this interesting consult. Plan of care was discussed with primary team. Please call or text with any questions. (2) Hypertension: (3) TBI (traumatic brain injury): (4) Post-traumatic epilepsy, non-refractory: History of Present Illness Attending Physician: Balaji Potter MD History of Present Illness Elan Barraza is a 54-year-old male with past medical history of hypertension, hyperlipidemia, prior TBI with residual left frontal encephalomalacia complicated by epilepsy who presents to [facility] after having 2 breakthrough seizures within 24 hours. He was in his normal state of health until her when he had a breakthrough seizure at work. He reports that that time he had loss of consciousness associated with tongue biting and loss of bladder. He had a 1 to 2-minute seizure at work and was transported by EMS to the ED. Seizure occurred when he was standing up from eating dinner, had post ictal cry, clenched his fist, turned bright red and started shaking. He was seen in the ED where vitals were notable for BP 159/104, heart rate 103, respiratory rate 18, afebrile, satting 98% on room air. Labs are notable for glucose 153, creatinine 1.08, BUN 20, hemoglobin 13.7, platelets 191, gap 9, calcium within normal, mag mildly low at 1.6, TSH within normal, UA no infection, UDS negative. EKG showed normal sinus rhythm. He had prolonged postictal confusion but did return to baseline while in the ED. He was advised to increase Lamictal to 25 mg twice daily and follow- up with Abbey Sutherland as outpatient. On his way home, he had another breakthrough seizure while being transported by his girlfriend. The seizure was also associated with tongue biting but no loss of bladder. They can re-presented to the emergency department at this time was given a 1 g Keppra load, 1 mg of Ativan and admitted for further monitoring. On examination today, he reports that he is back to baseline. His tongue is sore but otherwise he has no complaints at this time. Interim testing includes an MRI of the brain which shows stable left frontal encephalomalacia and no new concerning lesions. He denies any sleep deprivation or life stressors, infections or other possible triggers for breakthrough seizure other than he is currently weaning down off his Lamictal. He reports that he last took Lamictal 25 mg daily yesterday. Allergies Allergy/AdvReac Type Severity Reaction Status Date / Time bee venom protein (honey bee) Allergy Intermediate severe Verified 08/29/19 12:21 swelling Home Medications Home Medications Medication Instructions Recorded Confirmed Type lisinopril 20 mg tablet 20 mg PO DAILY #90 tab 03/31/19 09/04/19 Rx simvastatin 20 mg tablet 20 mg PO QAM #90 tab 04/04/19 09/04/19 Rx Centrum Men 1 tab PO DAILY 09/04/19 09/04/19 History lamotrigine 50 mg PO DAILY #30 tab 09/05/19 Rx levetiracetam 500 mg PO BID #14 tab 09/05/19 Rx Patient History Social History Preferred Language: Turkmen Communication Ability: Effective Brine Process Operator Required: No Beliefs That Will Affect Care: None Current Living Situation: Spouse Feels Safe at Home: Yes Smoking Status: Former smoker Second Hand Exposure: Yes (father smoked) ; Hx Alcohol Use: Yes Alcohol type: wine Hx Substance Use: No Review of Systems Review of Systems: 14 point review of systems completed and negative except as in HPI. Physical Exam Physical Exam: General Exam: GEN: NAD, sitting in chair. HEENT: No conjunctival injection, no rhinorrhea. CV: RRR, no peripheral edema PULM: Nonlabored respirations on room air. Neuro Exam: MS: Awake and Alert. Oriented to person, place, and date. Speech fluent and appropriate without dysarthria or paraphasic errors. Language intact including naming, comprehension, repetition. Cognition and memory grossly intact. Attention intact. No neglect. CN: Visual cole full. No extinction to double simultaneous stimuli. No optic disc edema on fundoscopic exam. PERRLA OU. EOMI without nystagmus. Facial sensation intact to LT. Facial muscles full and symmetric. Hearing intact to conversation. Uvula midline with symmetric palatal elevation. Shoulder shrug normal. Tongue midline. MOTOR: Normal bulk and tone. No pronator drift. BUE strength 5/5 at deltoids, biceps, triceps, wrist flexors and extensors, and hand grasp bilaterally. BLE strength 5/5 at iliopsoas, hamstrings, quadriceps, tibialis anterior, and gastrocnemius bilaterally. REFLEXES: 2+ at biceps, triceps, brachioradialis, patella and Achilles bilateral ly. Flexor plantar responses bilaterally. SENSORY: Intact to LT without extinction to double simultaneous stimuli. Vibration and pinprick intact throughout. COORDINATION: No dysmetria or ataxia on [id number] and [id number] bilaterally. Normal Diane bilaterally. GAIT: Normal gait. Results & Data Vital Signs (Past 12 Hours) Vital Signs Temp Pulse Pulse Resp BP BP Pulse Ox 09/05/19 16:42 37.1 C 84 18 151/89 H 154/88 H 94 09/05/19 15:44 77 09/05/19 15:36 37.1 C 84 18 154/88 H 94 09/05/19 11:35 36.9 C 78 18 150/87 H 93 09/05/19 11:06 82 09/05/19 07:26 36.7 C 78 18 151/89 H 95 PG Care Time/CCT Total # of Minutes Spent Total Time Spent with Patient: Total time spent is greater than 50% in coordination of care (as documented) at patient's floor/unit and/or counseling patient: Coding Level of Care Code 92466 Inpt Consult Level 5 Diagnoses Breakthrough seizure G40.919 Hypertension I10 TBI (traumatic brain injury) S06.9X9A Post-traumatic epilepsy, non-refractory G40.909; S06.9X9S
--- NOTE | 2019-09-07 00:12 | Billing Data ---
Date of Service September 07, 2019 Coding Level of Care Code 52698 Initial Inpt Care Lvl 3
== END 2019-09-05 18:28 | disposition home or self-care (01) | DRG 101 ==
LOC: ED 20:53 → 2N 21:55 → SUATTDRO 21:55 → 2N 22:25